=== PATIENT | male | born 1995 | race Caucasian/White ===

== ENCOUNTER 2019-10-26 13:23 | Emergency (ER) | payer BC, SELFPAY ==
--- NOTE | ~2019-10-26 | XR_ITS ---
EXAMINATION: XR chest 2V DATE: 10/26/2019 15:02 INDICATION: Shortness of breath, influenza positive TECHNIQUE: PA and lateral views of the chest are obtained. COMPARISON: None available FINDINGS: The lungs are free of acute opacities. There is no pleural effusion or pneumothorax. The ca rdiomediastinal silhouette is normal. The visualized bones and soft tissues are unremarkable. IMPRESSION: 1. No acute cardiopulmonary abnormality. Reviewed, dictated and finalized at location A. IAN TEACHER
[2019-10-26 14:05] VITALS: BP 121/54; PULSE 95; RESP 18; TEMP 39.3; O2SAT 99
--- NOTE | 2019-10-26 14:54 | ED.URI ---
HPI - URI/Sore Throat General Chief Complaint: Upper Respiratory Infection Stated Complaint: Cough/SOB Time Seen by Provider: 10/26/19 14:47 Source: patient and RN notes reviewed Mode of arrival: ambulatory Limitations: no limitations History of Present Illness HPI Narrative: Patient presents today with a 4-day history of body aches, With a 3-day history of productive cough, sore throat, shortness of breath, with a 2-day history of subjective fever and sweats. He has been taking Tylenol and DayQuil without relief. He did not receive a flu vaccine this season. MD elicited complaint: fever and cough Related Data Home Medications Medication Instructions Recorded Confirmed No Home Medications 10/26/19 10/26/19 Allergies Allergy/AdvReac Type Severity Reaction Status Date / Time No Known Allergies Allergy Verified 10/26/19 14:31 Review of Systems Review of Systems: Narrative: CONSTITUTIONAL: +Body aches, fever, sweats EYES: Denies visual changes, redness, or discharge. ENT: Denies rhinorrhea, congestion, or otalgia.+Sore throat CARDIOVASCULAR: Denies chest pain, palpitations, or edema. RESPIRATORY: +Cough, shortness of breath GASTROINTESTINAL: Denies abdominal pain, nausea, vomiting, or diarrhea. GENITOURINARY: Denies dysuria or hematuria. SKIN: Denies rash, itching, or wounds. MUSCULOSKELETAL: Denies back pain, joint pain, or myalgia. NEUROLOGIC: Denies headache, numbness, tingling, or weakness. PSYCH: Denies depression or anxiety. PMFSH Comments At time of signature, I have reviewed and agree with nursing past medical, surgical, social and family history unless otherwise noted. Please see nursing chart for further information. There is no relevant family history pertinent to the presenting complaint Exam Narrative: Exam Narrative: GENERAL: Mildly ill-appearing, well-nourished, and in no acute distress. HEAD: Normocephalic, atraumatic. EYES: EOMI. No redness or drainage. Conjunctivae normal. ENT: Mucous membranes pink and moist. Nares clear. No rhinorrhea. TMs normal bilaterally. Throat normal. Uvula midline. NECK: Normal AROM. Supple. No lymphadenopathy. CHEST: No respiratory distress. Clear to auscultation. HEART: Regular rate and rhythm. No murmur appreciated. Normal peripheral pulses. EXTREMITIES: Normal range of motion. No edema. SKIN: Warm, dry, no rash. NEURO: No focal deficits. Alert and oriented x3. Gait steady. PSYCH: Normal affect. No signs of depression or anxiety. Course Vital Signs Vital signs: Vital Signs Temperature 102.8 F H 10/26/19 14:05 Pulse Rate 95 10/26/19 14:05 Respiratory Rate 18 10/26/19 14:05 Blood Pressure 121/54 L 10/26/19 14:05 Pulse Oximetry 99 10/26/19 14:05 Temperature 103.0 F H 10/26/19 15:02 Pulse Rate 95 10/26/19 14:05 Respiratory Rate 18 10/26/19 14:05 Blood Pressure 121/54 L 10/26/19 14:05 Pulse Oximetry 99 10/26/19 14:05 Reviewed. Pt has been instructed to follow up with his PCP regarding his elevated blood pressure today. MDM - URI/Sore Throat Differential Diagnosis Differential diagnosis: Likely upper respiratory infection, viral infection, influenza and other (Strep throat) Lab Data Attestation: I reviewed the patient's lab results. Labs: Influenza A Screen Negative Reference Range: Negative Influenza B Screen Positive Reference Range: Negative Strep Screen Presumptive Negative *(Reference Range: Negative)* Imaging Data Radiologist's impression: ITS Impressions Chest X-Ray 10/26/19 15:04 IMPRESSION: 1. No acute cardiopulmonary abnormality. Critical Care Time Critical Care Time Critical Care Time: No Discharge Plan Discharge Clinical Impression: Influenza B Patient Disposition: Home, Self-Care Condition: Stable Instructions: Influenza (DC) Additional Instructions: You are positive for influenza B.You are lik
[2019-10-26 15:02] VITALS: TEMP 39.4
[2019-10-26] MEDS: ACETAMINOPHEN 500 MG TABLET 1000 MG PO (15:02)
[2019-10-26] MEDS: IBUPROFEN 400 MG TABLET 800 MG PO (15:02)
[2019-10-26 15:32] VITALS: TEMP 38.9
== END 2019-10-26 15:35 | disposition home or self-care (01) ==
PROVIDERS: Emergency Provider Nurse Practitioner; PCP Family Medicine
DX: J10.1 Influenza due to other identified influenza virus with other respiratory manifestations (principal)
CPT/HCPCS: 71046; 87081; 87147; 87804; 87880; 99203; A9270; G0463

== ENCOUNTER 2021-03-23 15:14 | Outpatient (CLI) | payer BC, SELFPAY ==
[2021-03-23 16:05] LABS: Basophils Absolute Auto 0.1 K/mm3 (0.0-0.1); Basophils Percent Auto 0.6 % (0.2-1.2); Eosinophils Percent Auto 0.2 % (0-4.4); Hematocrit 42.4 % (42.0-52.0); Hemoglobin 14.4 g/dL (14.0-18.0); Immature Granulocyte Absolute 0.05 K/mm3 (0.00-0.031); Immature Granulocyte Percent A 0.4 % (0-0.5); Lymphocytes Absolute Auto 3.25 K/mm3 (0.9-3.2); Lymphocytes Percent Auto 24.5 % (18.3-44.2); Mean Corpuscular Hemoglobin 30.8 pg (26-34); Mean Corpuscular Volume 90.8 fl (80-100); Mean Platelet Volume 10.1 fl (7.4-10.4); Monocytes Percent Auto 7.8 % (2.6-8.5); Neutrophils Absolute Auto 8.8 K/mm3 (1.3-6.7); Neutrophils Percent Auto 66.5 % (45.5-73.1); Platelet Count Result 247 k/mm3 (150-375); Red Blood Count 4.67 M/mm3 (4.6-6.20); Red Cell Distribution Width 12.6 % (11.5-14.5); White Blood Count 13.3 K/mm3 (4.5-10.0)
[2021-03-23 16:06] LABS: Add Urine Microscopic? NO; Appearance Urine Clear (Clear); Bilirubin Urine Negative (Negative); Blood Urine Negative (Negative); Color Urine Yellow (Yellow); Glucose Urine UA Negative (Negative); Ketones Urine Negative (Negative); Leukocyte Esterase Ur Negative LEU/UL (NEGATIVE); Nitrate Urine Negative (Negative); Protein Urine Negative (Negative); Urobilinogen Urine Negative mg/dL (<2.0)
[2021-03-23 16:17] LABS: Alanine Aminotransferase 43 U/L (4-50); Albumin Level 4.7 g/dL (3.5-5.1); Alkaline Phosphatase 23 U/L (38-126); Anion Gap 10 mmol/L (8-16); Aspartate Amino Transferase 48 U/L (17-59); Bilirubin,Total 0.4 mg/dL (0.2-1.3); Blood Urea Nitrogen 37 mg/dL (9-20); Calcium 9.8 mg/dL (8.4-10.2); Carbon Dioxide 31 mmol/L (22-30); Chloride 100 mmol/L (98-107); Cholesterol 137 mg/dL (0-200); Estimated Glomerular Filt Rate > 60; Glucose 96 mg/dL (65-110); HDL Direct 64 mg/dL; Potassium 3.8 mmol/L (3.4-5.0); Sodium 141 mmol/L (137-145); Triglycerides 107 mg/dL (<150)
[2021-03-23 16:19] LABS: Specific Grav Ur 1.032 (1.001-1.035)
[2021-03-23 16:27] LABS: LDL Cholesterol Direct 48 mg/dL
[2021-03-23 17:38] LABS: Folic Acid 6.5 ng/mL (2.76->20)
== END 2021-03-23 15:15 | disposition home or self-care (01) ==
PROVIDERS: PCP Family Medicine; Visit Provider Nurse Practitioner Family
DX: R19.7 Diarrhea, unspecified (principal); K92.1 Melena; Z87.19 Personal history of other diseases of the digestive system
CPT/HCPCS: 36415; 80053; 80061; 81003; 82607; 82746; 84443; 85025

== ENCOUNTER 2021-03-24 06:38 | Outpatient (CLI) | payer BC, SELFPAY ==
--- NOTE | ~2021-03-24 | CT_ITS ---
EXAMINATION: CT abdomen pelvis w con DATE: 03/24/2021 07:09 INDICATION: Prior colitis presenting with abdominal pain, diarrhea and hematochezia TECHNIQUE: Computed tomography (CT) of the abdomen and pelvis was performed with 100 mL Omnipaque-350 intravenous contrast. Automated exposure control and iterative reconstruction technique were employe d. The dose-length product was 450.31 mGy-cm. COMPARISON: None FINDINGS: Lung bases are clear. Heart size is normal. No pericardial or pleural effusion. Liver, gallbladder, s pleen, pancreas, bilateral adrenal glands and kidneys are normal. Suture line along the tip of the ce cum likely related to prior appendectomy. Small amount of fluid scattered throughout the normal calib er small bowel. Moderate amount of stool scattered throughout the colon. Bladder is normal. Trace tri unt of free fluid in the deep pelvis. No abscess or free intraperitoneal gas. No pathologically enlar ged abdominal or pelvic lymphadenopathy. Bones are unremarkable. IMPRESSION: 1. Trace amount of nonspecific free fluid in the deep pelvis. No other acute intra-abdominal/pelvic p rocess. Reviewed, dictated and finalized at location A. IMPRESSION: 1. Trace amount of nonspecific free fluid in the deep pelvis. No other acute in tra-abdominal/pelvic process.
[2021-03-30 21:27] LABS: Calprotectin, Stool 46 mcg/g
== END 2021-03-24 06:39 | disposition home or self-care (01) ==
PROVIDERS: PCP Family Medicine; Visit Provider Nurse Practitioner Family
DX: K92.1 Melena (principal); R10.9 Unspecified abdominal pain; R19.7 Diarrhea, unspecified; Z87.19 Personal history of other diseases of the digestive system
CPT/HCPCS: 74177; 83993; Q9967

== ENCOUNTER 2021-04-19 15:30 | Emergency (ER) | payer BC, SELFPAY ==
--- NOTE | ~2021-04-19 | XR_ITS ---
XR abdomen/kub 1V DATE: 04/19/2021 18:27 INDICATION: Abdominal pain; chronic rectal bleeding for 10 years TECHNIQUE: AP projection, 2 supine views COMPARISON: 03/24/2021 CT abdomen pelvis FINDINGS: The psoas shadows are intact. No visceromegaly is detected. No evidence of bowel obstructio n Included skeletal structures are unremarkable. The lung bases are clear. IMPRESSION: No significant abnormality Reviewed, dictated and finalized at Location A. Reviewed, dictated and finalized at location A. IMPRESSION: No significant abnormality
[2021-04-19 15:44] VITALS: BP 141/62; PULSE 51; RESP 16; TEMP 36.5; O2SAT 98
[2021-04-19 15:59] LABS: Basophils Absolute Auto 0.1 K/mm3 (0.0-0.1); Basophils Percent Auto 0.8 % (0.2-1.2); Eosinophils Absolute Auto 0.2 K/mm3 (0-0.3); Hematocrit 41.8 % (42.0-52.0); Hemoglobin 14.3 g/dL (14.0-18.0); Immature Granulocyte Absolute 0.02 K/mm3 (0.00-0.031); Immature Granulocyte Percent A 0.3 % (0-0.5); Lymphocytes Absolute Auto 2.22 K/mm3 (0.9-3.2); Lymphocytes Percent Auto 29.3 % (18.3-44.2); Mean Corpuscular HGB Conc 34.2 g/dl (32-36); Mean Corpuscular Hemoglobin 30.8 pg (26-34); Mean Corpuscular Volume 90.1 fl (80-100); Mean Platelet Volume 9.8 fl (7.4-10.4); Monocytes Absolute Auto 0.6 K/mm3 (0.1-0.6); Monocytes Percent Auto 8.3 % (2.6-8.5); Neutrophils Absolute Auto 4.5 K/mm3 (1.3-6.7); Neutrophils Percent Auto 59.3 % (45.5-73.1); Platelet Count Result 244 k/mm3 (150-375); Red Blood Count 4.64 M/mm3 (4.6-6.20); Red Cell Distribution Width 12.4 % (11.5-14.5); White Blood Count 7.6 K/mm3 (4.5-10.0)
[2021-04-19 16:09] LABS: INR 1.1; Prothrombin Time 14.1 Seconds (11.1-14.7)
[2021-04-19 16:10] LABS: Alanine Aminotransferase 47 U/L (4-50); Albumin Level 4.7 g/dL (3.5-5.1); Alkaline Phosphatase 23 U/L (38-126); Anion Gap 8 mmol/L (8-16); Aspartate Amino Transferase 47 U/L (17-59); Bilirubin,Total 0.4 mg/dL (0.2-1.3); Blood Urea Nitrogen 26 mg/dL (9-20); Calcium 9.5 mg/dL (8.4-10.2); Carbon Dioxide 29 mmol/L (22-30); Chloride 104 mmol/L (98-107); Estimated CRCL calculation 82 ml/min; Estimated Glomerular Filt Rate > 60; Glucose 87 mg/dL (65-110); Partial Thromboplastin Time 32.8 SECONDS (22.3-36.8); Potassium 3.9 mmol/L (3.4-5.0); Sodium 141 mmol/L (137-145)
--- NOTE | 2021-04-19 17:56 | ED.GENADULT ---
HPI - General Adult General Chief complaint: GI Bleed Stated complaint: rectal bleeding Time Seen by Provider: 04/19/21 17:47 Source: patient Mode of arrival: ambulatory Limitations: no limitations History of Present Illness HPI narrative: Patient is here for evaluation of persistent rectal bleeding. States he was sent in by the physician's office. He has been being treated for this problem for the last 21 days with a reducing dose of steroids. He states that when he started the steroids he had obvious bleeding, now he has bleeding when he wipes. He does not have any abdominal pain and he has soft to normal stools. He does state that after he stools he has rectal pain for a while. He is eating and drinking as normal diet. 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 He was initially evaluated for this problem he was 16 years old and now his primary care physician is working on getting him GI appointment. If he has to see GI he prefers therapy at [facility]. Associated symptoms: denies other symptoms Related Data Allergies Allergy/AdvReac Type Severity Reaction Status Date / Time No Known Allergies Allergy Verified 10/26/19 14:31 Review of Systems Review of Systems: All systems reviewed & are unremarkable except as noted in HPI and below PMFSH Past Medical History Medical History Abdominal pain Colitis Diarrhea Hematochezia History of colitis Surgical History Surgical History H/O colonoscopy 2002 History of appendectomy 2014 Family History Family History Mother Depression Hypertension Social History Social History Smoking status: Never smoker Alcohol intake: current Substance use: never Substance use type: does not use Exam Const: General: healthy appearing and no acute distress Eyes: Pupils: Equal, round and reactive pupils present Resp: Effort & Inspection: normal respiratory effort Auscultation: clear to auscultation bilaterally Cardio: Rate: regular rate Rhythm: regular rhythm GI: GI Palp: Yes Soft to palpation and Yes Tenderness to palpation present (GI) (mild tenderness left periumbilical) Auscultation: normal bowel sounds Rectal Exam: visual inspection normal, normal sphincter tone and heme positive stool Skin: General skin exam: normal color Extrem: General: normal to inspection Psych: Mental Status: mental status grossly normal Course Course Emergency Course: Patient had a CT 3 weeks ago of his abdomen and pelvis that showed no pathologic cause for brief bleeding. He is not anemic. Rectal exam here today produced minimal stool that was Hemoccult positive. There is no evidence of external hemorrhoids. Abdominal x-ray showed no evidence of free air and no dilated loops. Abdominal exam is unremarkable. Discharge with recommendation to follow-up with primary care for referral to GI [facility]. Vital Signs Vital signs: Vital Signs Temperature 36.5 C 04/19/21 15:44 Pulse Rate 51 L 04/19/21 15:44 Respiratory Rate 16 04/19/21 15:44 Blood Pressure 141/62 H 04/19/21 15:44 Pulse Oximetry 98 04/19/21 15:44 Temperature 36.5 C 04/19/21 15:44 Pulse Rate 51 L 04/19/21 15:44 Respiratory Rate 16 04/19/21 15:44 Blood Pressure 141/62 H 04/19/21 15:44 Pulse Oximetry 98 04/19/21 15:44 Medical Decision Making Vital Signs Vital Signs: Vital Signs Temperature 36.5 C 04/19/21 15:44 Pulse Rate 51 L 04/19/21 15:44 Respiratory Rate 16 04/19/21 15:44 Blood Pressure 141/62 H 04/19/21 15:44 Pulse Oximetry 98 04/19/21 15:44 Temperature 36.5 C 04/19/21 15:44 Pulse Rate 51 L 04/19/21 15:44 Respiratory Rate 16 04/19/21 15:44 Blood Pressure 141/62 H 04/19/21 15:44 Pulse Oximetry 98 04/19/21 15:44
[2021-04-19 18:08] VITALS: BP 138/88; PULSE 104; RESP 12; O2SAT 97
[2021-04-19 19:33] VITALS: BP 133/65; PULSE 78; RESP 18; O2SAT 97
== END 2021-04-19 19:35 | disposition home or self-care (01) ==
PROVIDERS: Emergency Medicine; Emergency Provider Family Medicine; PCP Nurse Practitioner Family
DX: K92.1 Melena (principal)
CPT/HCPCS: 36415; 74018; 80053; 85025; 85610; 85730; 86850; 86900; 86901; 99283

== ENCOUNTER 2022-10-05 16:53 | Outpatient (CLI) | payer OTHER, SELFPAY ==
--- NOTE | ~2022-10-05 | XR_ITS ---
EXAMINATION: [id number]_[id number]_CR DATE: 10/05/2022 17:42 INDICATION: Right foot pain. TECHNIQUE: 4 views of right foot were obtained. COMPARISON: None. FINDINGS: Bone alignment is normal. There is a nondisplaced old fracture of medial base of first dist al phalanx with nonunion. No acute fracture. Joint spaces are normal. IMPRESSION: 1. 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 Reviewed, dictated and finalized at location A. LIER SPECIALIST
[2022-10-05 17:36] LABS: Chloride 100 mmol/L (98-107)
[2022-10-05 17:42] LABS: Anion Gap 7 mmol/L (8-16); Blood Urea Nitrogen 23 mg/dL (9-20); Carbon Dioxide 32 mmol/L (22-30); Estimated Glomerular Filt Rate > 60; Glucose 95 mg/dL (65-110); Potassium 4.1 mmol/L (3.4-5.0); Sodium 139 mmol/L (137-145); Uric Acid 6.2 mg/dL (3.5-8.5)
== END 2022-10-05 16:54 | disposition home or self-care (01) ==
LOC: ANHIMG 16:55
PROVIDERS: PCP Family Medicine; Visit Provider Family Medicine
DX: M79.671 Pain in right foot (principal)
CPT/HCPCS: 36415; 73630; 80048; 84550

== ENCOUNTER 2022-12-18 15:32 | Outpatient (CLI) | payer OTHER, SELFPAY ==
[2022-12-18 16:10] LABS: Hematocrit 39.9 % (42.0-52.0); Hemoglobin 13.6 g/dL (14.0-18.0); Mean Corpuscular HGB Conc 34.1 g/dl (32-36); Mean Corpuscular Hemoglobin 29.8 pg (26-34); Mean Corpuscular Volume 87.3 fl (80-100); Mean Platelet Volume 9.7 fl (7.4-10.4); Platelet Count Result 326 k/mm3 (150-375); Red Blood Count 4.57 M/mm3 (4.6-6.20); Red Cell Distribution Width 12.3 % (11.5-14.5); White Blood Count 11.2 K/mm3 (4.5-10.0)
[2022-12-18 16:22] LABS: Alanine Aminotransferase 29 U/L (6-50); Albumin Level 4.7 g/dL (3.5-5.1); Alkaline Phosphatase 28 U/L (38-126); Anion Gap 6 mmol/L (8-16); Aspartate Amino Transferase 38 U/L (17-59); Bilirubin,Total 0.5 mg/dL (0.2-1.3); Blood Urea Nitrogen 21 mg/dL (9-20); CRP 1.1 mg/dL (<1.0); Calcium 9.5 mg/dL (8.4-10.2); Carbon Dioxide 33 mmol/L (22-30); Chloride 100 mmol/L (98-107); Estimated Glomerular Filt Rate > 60; Glucose 88 mg/dL (65-110); Sodium 139 mmol/L (137-145)
[2022-12-18 16:50] LABS: Erythrocyte Sedimentation Rate 23 mm/hr (0-20)
== END 2022-12-18 15:33 | disposition home or self-care (01) ==
LOC: ANHLAB 15:34
PROVIDERS: PCP Family Medicine; Visit Provider Nurse Practitioner
DX: K52.9 Noninfective gastroenteritis and colitis, unspecified (principal); K92.1 Melena; R10.9 Unspecified abdominal pain
CPT/HCPCS: 36415; 80053; 85027; 85652; 86140

== ENCOUNTER 2022-12-22 13:40 | Outpatient (CLI) | payer OTHER, SELFPAY ==
--- NOTE | ~2022-12-22 | MR_ITS ---
EXAMINATION: MR foot RT wo con DATE: 12/22/2022 15:03 INDICATION: Sprain of right foot, great toe. TECHNIQUE: Magnetic resonance imaging (MRI) of the right foot was performed without intravenous contr ast. COMPARISON: Right foot radiographs 10/05/2022 FINDINGS: Bone alignment is normal. There is an old fracture of medial base of first distal phalanx w ith nonunion. Joint spaces are normal. Lisfranc ligament is normal. The flexor and extensor tendons a re normal. There is a skin marker plantar to first metatarsophalangeal joint. There is a partial tear of the plantar plate at first metatarsophalangeal joint. There is a partial tear of medial collatera l ligament at first metatarsophalangeal joint at its distal attachment. There is a small effusion of first metatarsophalangeal joint. IMPRESSION: 1. Partial tears of the plantar plate and medial collateral ligament at first metatarsophalangeal jean marie nt. Reviewed, dictated and finalized at location A. IMPRESSION: 1. Partial tears of the plantar plate and medial collateral ligament at first m etatarsophalangeal joint.
== END 2022-12-22 13:41 | disposition home or self-care (01) ==
PROVIDERS: PCP Family Medicine; Visit Provider Podiatrist Foot & Ankle Surgery
DX: S93.501A Unspecified sprain of right great toe, initial encounter (principal); X58.XXXA Exposure to other specified factors, initial encounter
CPT/HCPCS: 73718

== ENCOUNTER 2022-12-27 08:09 | Outpatient (NON) | payer OTHER, SELFPAY ==
[2022-12-27 10:46] LABS: Toxigenic C. Diff NEGATIVE (NEGATIVE)
[2023-01-04 20:32] LABS: Calprotectin, Stool 6910 mcg/g
== END 2022-12-27 08:10 | disposition home or self-care (01) ==
LOC: ANHLAB 08:10
PROVIDERS: PCP Family Medicine; Visit Provider Nurse Practitioner
DX: K52.9 Noninfective gastroenteritis and colitis, unspecified (principal); K92.1 Melena; R10.9 Unspecified abdominal pain
CPT/HCPCS: 83993; 87493

== ENCOUNTER 2023-01-21 01:31 | Day surgery (SDC) | payer OTHER, SELFPAY ==
[2023-01-04 14:38] VITALS: BMI 27.2
[2023-01-21 11:08] VITALS: BP 116/69; PULSE 55; RESP 16; TEMP 36.3; O2SAT 100
--- NOTE | 2023-01-21 11:27 | P.PNAN_ITS ---
Anes - Initial Pre Proc Eval Procedure: Operation Date: 01/21/23 11:30 Proposed Procedures p Colonoscopy - Jarrett Faulkner MD Date/Time: 01/21/23 11:27 Surgeon: Jarrett Faulkner MD Pre Op Diagnosis: melena,gastritis,colitis,abdominal pain Patient Data Age: 28 Gender: M Height: 1.8 m Weight: 84.2 kg Last Vital Signs Temp 97.3 F L 01/21/23 11:08 Pulse 55 L 01/21/23 11:08 Resp 16 01/21/23 11:08 BP 116/69 01/21/23 11:08 Pulse Ox 100 01/21/23 11:08 O2 Del Method Room Air 01/21/23 11:08 Allergies Allergy/AdvReac Type Severity Reaction Status Date / Time No Known Allergies Allergy Verified 01/21/23 11:05 Home Medications Medication Instructions Recorded Confirmed Type rifaximin 550 mg tablet (Xifaxan) 550 mg PO BID #30 tabs 01/17/23 01/21/23 Rx Patient hx anesthesia problems: none Family hx anesthesia problems: none Results Review: All pre-operative results and documents have been reviewed as part of the pre- operative evaluation. [facility] Past Medical History Medical History (Updated 12/18/22 @ 15:28 by Deedee Adams APRN) Abdominal pain Colitis Diarrhea Hematochezia Hematochezia History of colitis Right foot pain Surgical History Surgical History H/O colonoscopy 2002 History of appendectomy 2013 Family History Family History Mother Depression Hypertension Colitis Social History Social History Smoking status: Never smoker Alcohol intake: current Drinks per week: 2 Alcohol use details: DRINKS Substance use: never Substance use type: does not use Lack of Transportation: No Lack of Food: Never True Current Housing: I Have Housing Concerned About Future Housing: No Difficulty Paying Gas/Electric Bills: No Difficulty Paying for Meds: No Currently Unemployed: No Education: High School Diploma/GED Difficulty w/ Childcare or Family Care: No Living arrangements: with family Spiritual care concerns: No Anes - Eval Final PreProcedure Day of Procedure 01/21/23 11:27 Patient weight: normal Heart: regular rate and rhythm Lungs: clear to auscultation Airway: Mallampati scale class II Neurological: alert and oriented Last oral intake: >/= 8 hours ASA classification: II Emergent: no Anesthetic plan: proceed Anesthesia type and monitoring: general GIVS and standard monitoring Results Review: All pre-operative results and documents have been reviewed as part of the pre- operative evaluation. Informed Consent: The patient's anesthetic plan and its attendant risks and benefits were discusse d with the patient/family/POA. Questions were solicited and answers provided to the satisfaction of the patient/family/POA.
[2023-01-21] MEDS: LACTATED RINGERS 1,000 ML 150 ML IV CONT (11:30)
--- NOTE | 2023-01-21 11:40 | PM.HPGS ---
History of Present Illness History of Present Illness Consent: Risks, benefits, and alternatives have been discussed and questions answered. Patient agrees to proceed with procedure. Chief complaint: melena,gastritis,colitis,abdominal pain Narrative: Fletcher Aldrich is a 28 year old male Presents for colonoscopy. 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 Over the last year has had diarrhea alternating with constipation. He occasionally has bright red blood per rectum with wiping and occasionally stools. Patient empirically has been treated with steroids with no improvement. He has been on continuous Xifaxan for the last several months and reports that his stools have returned to normal. Patient has rather vague abdominal cramping associated with bowel habits. Patient presents today for colonoscopy to assess for colon pathology. Recently seen by the nurse practitioner in the office. Review of Systems Review of Systems: Review of systems noncontributory. [facility] Past Medical History Medical History (Updated 01/21/23 @ 11:43 by Jarrett Faulkner MD) Abdominal pain Colitis Diarrhea Hematochezia Hematochezia History of colitis Right foot pain Surgical History Surgical History H/O colonoscopy 2001 History of appendectomy 2013 Family History Family History Mother Depression Hypertension Colitis Social History Social History Smoking status: Never smoker Alcohol intake: current Drinks per week: 2 Alcohol use details: DRINKS Substance use: never Substance use type: does not use Lack of Transportation: No Lack of Food: Never True Current Housing: I Have Housing Concerned About Future Housing: No Difficulty Paying Gas/Electric Bills: No Difficulty Paying for Meds: No Currently Unemployed: No Education: High School Diploma/GED Difficulty w/ Childcare or Family Care: No Living arrangements: with family Spiritual care concerns: No Meds Home Medications and Allergies Home Medications Medication Instructions Recorded Confirmed Type rifaximin 550 mg tablet (Xifaxan) 550 mg PO BID #30 tabs 01/17/23 01/21/23 Rx Allergies Allergy/AdvReac Type Severity Reaction Status Date / Time No Known Allergies Allergy Verified 01/21/23 11:05 Vital Signs Vital Signs - 24 hr 01/21/23 11:08 Temperature 97.3 F L Pulse Rate 55 L Respiratory Rate 16 Blood Pressure 116/69 Pulse Oximetry 100 Oxygen Delivery Room Air Exam Narrative: Physical exam reveals patient to be alert. Vital signs stable. HEENT exam is unremarkable. Patient is anicteric. Lungs are clear to auscultation and percussion. Heart is without murmur or extra sounds. Abdomen bowel sounds present soft nontender with no hepatosplenomegaly. Digital external rectal exam is normal. Assessment and Plan Assessment and plan (1) Hematochezia: Code(s): K92.1 - Melena Status: Acute Assessment and Plan: Patient notes blood in stools intermittently over the last year typically when he has diarrhea. Colonoscopy will be performed. (2) Change in bowel habit: Code(s): R19.4 - Change in bowel habit Status: Acute Assessment and Plan: Patient has diarrhea alternating with constipation over the last year. Apparently is improved on a trial of Xifaxan which she has taken continuously last several months. Plan for colonoscopy to assess more thoroughly. 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
[2023-01-21] MEDS: SIMETHICONE ORAL SUSPENSION 20 MG/0.3 ML 30 ML BOTTLE 0.6 ML IRRIGATION (12:32)
[2023-01-21 12:42] VITALS: BP 98/53; PULSE 46; RESP 20; O2SAT 100
[2023-01-21 12:52] VITALS: BP 110/53; PULSE 58; RESP 19; O2SAT 100
[2023-01-21 13:02] VITALS: BP 122/53; PULSE 45; RESP 21; O2SAT 100
== END 2023-01-21 13:10 | disposition home or self-care (01) ==
PROVIDERS: PCP Family Medicine; Visit Provider Internal Medicine Gastroenterology
PROC: 0DJD8ZZ Inspection of Lower Intestinal Tract, Via Natural or Artificial Opening Endoscopic (ICD-10-PCS; CPT 45378; principal; 2023-01-21 11:30)
DX: R19.4 Change in bowel habit (principal); R10.9 Unspecified abdominal pain; K62.5 Hemorrhage of anus and rectum; K64.8 Other hemorrhoids
CPT/HCPCS: 45380; 88305; J2704; J7120

== ENCOUNTER 2023-09-14 07:57 | Outpatient (CLI) | payer OTHER, SELFPAY ==
[2023-09-14 09:14] LABS: Free T4 Free Thyroxine 1.19 ng/mL (0.78-2.19)
[2023-09-17 19:28] LABS: FSH 4.2 mIU/mL (1.4-12.8); LH 2.9 mIU/mL (1.5-9.3)
[2023-09-19 17:51] LABS: Testosterone Total 477 ng/dL (250-1100)
== END 2023-09-14 07:58 | disposition home or self-care (01) ==
LOC: ANHLAB 08:00
PROVIDERS: PCP Family Medicine; Visit Provider Family Medicine
DX: K52.9 Noninfective gastroenteritis and colitis, unspecified (principal); K92.1 Melena; R68.82 Decreased libido
CPT/HCPCS: 36415; 83001; 83002; 84402; 84403; 84439; 84443

== ENCOUNTER 2023-11-30 07:27 | Outpatient (CLI) | payer SELFPAY ==
[2023-11-30 07:59] LABS: Basophils Absolute Auto 0.1 K/mm3 (0.0-0.1); Basophils Percent Auto 0.9 % (0.2-1.2); Eosinophils Absolute Auto 0.1 K/mm3 (0-0.3); Eosinophils Percent Auto 1.1 % (0-4.4); Hematocrit 46.5 % (42.0-52.0); Hemoglobin 15.7 g/dL (14.0-18.0); Immature Granulocyte Absolute 0.02 K/mm3 (0.00-0.031); Immature Granulocyte Percent A 0.2 % (0-0.5); Lymphocytes Absolute Auto 2.18 K/mm3 (0.9-3.2); Lymphocytes Percent Auto 24.3 % (18.3-44.2); Mean Corpuscular HGB Conc 33.8 g/dl (32-36); Mean Corpuscular Hemoglobin 29.9 pg (26-34); Mean Corpuscular Volume 88.6 fl (80-100); Mean Platelet Volume 9.8 fl (7.4-10.4); Monocytes Absolute Auto 0.7 K/mm3 (0.1-0.6); Monocytes Percent Auto 7.5 % (2.6-8.5); Neutrophils Absolute Auto 5.9 K/mm3 (1.3-6.7); Platelet Count Result 278 k/mm3 (150-375); Red Blood Count 5.25 M/mm3 (4.6-6.20); Red Cell Distribution Width 12.3 % (11.5-14.5)
[2023-11-30 08:05] LABS: Alanine Aminotransferase 52 U/L (6-50); Albumin Level 4.5 g/dL (3.5-5.1); Alkaline Phosphatase 30 U/L (38-126); Anion Gap 8 mmol/L (4-12); Aspartate Amino Transferase 56 U/L (17-59); Bilirubin,Total 0.8 mg/dL (0.2-1.3); Blood Urea Nitrogen 28 mg/dL (9-20); Calcium 9.5 mg/dL (8.4-10.2); Carbon Dioxide 28 mmol/L (22-30); Chloride 101 mmol/L (98-107); Cholesterol 140 mg/dL (0-200); Estimated Glomerular Filt Rate > 60; Glucose 104 mg/dL (65-110); HDL Direct 60 mg/dL; Potassium 4.2 mmol/L (3.4-5.0); Sodium 137 mmol/L (137-145); Triglycerides 48 mg/dL (<150)
[2023-11-30 08:16] LABS: LDL Cholesterol Direct 70 mg/dL
[2023-11-30 10:20] LABS: Vitamin D 25 Hydroxy 56.2 ng/mL
[2023-12-04 11:01] LABS: Testosterone Total 564 ng/dL (250-1100)
[2023-12-04 14:11] LABS: Testosterone Free 102.7 pg/mL (46.0-224.0)
== END 2023-11-30 07:28 | disposition home or self-care (01) ==
LOC: ANHLAB 07:32
PROVIDERS: PCP Family Medicine; Visit Provider Family Medicine
DX: Z13.220 Encounter for screening for lipoid disorders (principal); R53.83 Other fatigue; R68.82 Decreased libido; R19.7 Diarrhea, unspecified
CPT/HCPCS: 36415; 80053; 80061; 82306; 84402; 84403; 84443; 85025

== ENCOUNTER → 2024-07-14 15:25 | Outpatient (REF) | payer OTHER, SELFPAY | LOC: ANHLAB 15:25 | PROVIDERS: PCP Family Medicine; Visit Provider Plastic Surgery | DX: L72.11 Pilar cyst (principal) | CPT/HCPCS: 88305 ==

== ENCOUNTER 2024-11-07 07:56 | Outpatient (CLI) | payer OTHER, SELFPAY ==
--- OUTSIDE RECORDS SUMMARY | 2024-11-07 07:58 | XMS_ITS | Data Portability ---
Author Organization [facility] ArunBenhauer, [facility] OFF[facility] Address [address] [place] [address] Care Team Providers Care Stain Wiper Name Role Phone ABDIRIZAK TAM Crop Duster Assessment No assessment recorded. Plan of Treatment Reminders Order Date Submit Date Provider Last Modified By Organization Details Last Modified Time Details Appointments None record ed. Lab None record ed. Referral None record ed. Procedures None record ed. Surgeries None record ed. Imaging XR, foot, 3 or more view - rm 10 023 10/23/19 23 ksavides Not available 3 15:27:29 Medication Orders None record ed. Patient TargetsNo targets recorded. Patient InstructionsNo instructions recorded. Reason for Referral None Reported. Medical Equipment None Reported. Allergies No known drug allergies Medications Name Sig Start Date Stop Date Status Note LastModified by Organization Details LastModified Time prednisone 10 mg tablet TAKE 3 TABLETS BY MOUTH DAILY FOR 5 DAYS active Not Available Not Available No t Available nabumetone 750 mg tablet TAKE 1 TABLET BY MOUTH TWICE DAILY active Not Available Not Available No t Available azithromycin 250 mg tablet active Not Available Not Availabl e Not Available Vitals None Recorded Social History None recorded. Functional Status None recorded. Mental Status None recorded. Family History Nothing Reported. Medical History No medical history recorded. Past Encounters Encounter ID Performer Location Encounter Start Date Encounter Closed Date Diagnosis/Indication Diagnosis SNOMED-CT Code Diagnosis ICD10 Code Diagnosis Note [id number] [facility] [address] [facility] [place] LAM [address] 10/23/2022 08:52:59 10/23/2022 15:27:28 Pain in right foot [id number] M79.671 Health Concerns Section Related Observation LastModified by Organization Jennifer garrett LastModified Time None Recorded Concern Status LastModified by Organization Details LastModified Time None Recorded Advance Directives Directive None Recorded Payers Encounter Date Sequence Insurance Name Policy Number Policy Peoples Covered Member ID Peoples Member ID Guarantor Name 10/23/2022 1 *SELF PAY* Christine Aldrich
== END 2024-11-07 07:57 | disposition home or self-care (01) ==
PROVIDERS: PCP Family Medicine; Visit Provider Family Medicine
DX: R68.82 Decreased libido (principal)
CPT/HCPCS: 36415; 84402; 84403

== ENCOUNTER 2025-06-07 07:29 | Outpatient (CLI) | payer OTHER, SELFPAY ==
[2025-06-07 08:29] LABS: Hematocrit 42.2 % (42.0-52.0); Hemoglobin 14.4 g/dL (14.0-18.0); Immature Granulocyte Percent A 0.2 % (0-0.5); Lymphocytes Absolute Auto 1.97 K/mm3 (0.9-3.2); Mean Corpuscular HGB Conc 34.1 g/dl (32-36); Mean Corpuscular Hemoglobin 30.4 pg (26-34); Mean Corpuscular Volume 89.2 fl (80-100); Nucleated Red Blood Cells Absolute Auto 0.000 K/mm3 (0.0-0.012); Nucleated Red Blood Cells Perc 0.0 % (0.0-0.2); Platelet Count Result 250 k/mm3 (150-375); Red Blood Count 4.73 M/mm3 (4.6-6.20); White Blood Count 5.1 K/mm3 (4.5-10.0)
[2025-06-07 08:49] LABS: Alanine Aminotransferase 33 U/L (6-50); Albumin Level 4.5 g/dL (3.5-5.1); Alkaline Phosphatase 26 U/L (38-126); Anion Gap 8 mmol/L (4-12); Aspartate Amino Transferase 39 U/L (17-59); Bilirubin,Total 0.7 mg/dL (0.2-1.3); Blood Urea Nitrogen 21 mg/dL (9-20); Calcium 9.2 mg/dL (8.4-10.2); Carbon Dioxide 29 mmol/L (22-30); Chloride 101 mmol/L (98-107); Cholesterol 144 mg/dL (0-200); Estimated Glomerular Filt Rate > 60; Glucose 100 mg/dL (65-110); HDL Direct 69 mg/dL; Potassium 4.3 mmol/L (3.4-5.0); Sodium 138 mmol/L (137-145); Total Protein 7.7 g/dL (6.3-8.2); Triglycerides 56 mg/dL (<150)
[2025-06-07 09:24] LABS: Thyroid Stimulating Hormone 1.890 uIU/mL (0.465-4.680)
[2025-06-09 23:07] LABS: Free Testosterone (Direct) 13.7 pg/mL (8.7-25.1)
== END 2025-06-07 07:30 | disposition home or self-care (01) ==
LOC: ANHLAB 07:30
PROVIDERS: PCP Family Medicine
DX: E29.1 Testicular hypofunction (principal); Z13.220 Encounter for screening for lipoid disorders; Z13.29 Encounter for screening for other suspected endocrine disorder; E55.9 Vitamin D deficiency, unspecified; Z13.0 Encounter for screening for diseases of the blood and blood-forming organs and certain disorders involving the immune mechanism; Z13.1 Encounter for screening for diabetes mellitus
CPT/HCPCS: 36415; 80053; 80061; 82306; 84402; 84403; 84443; 85025